=== PATIENT | female | born 1955 | race Caucasian/White ===

== ENCOUNTER 2016-06-26 21:28 | Emergency (ER) | payer MEDICARE ==
[~2016-06-26 21:28] MED LIST changes: -BENADRYL 25MG C25 MG PO; -COUMADIN4 MG PO; -COUMADIN7.5 MG PO; -FISH OIL PO; -IBUPROFEN800 MG PO; -LEVOTHYROXINE50 MCG PO; -MIRALAX17 GM PO; -MULTAQ400 MG PO; -ROCEPHIN 22 G/50 ML IV; -ROXICODONE5 MG PO; -TYLENOL 325MG325 MG PO; -VIT D PO; -VITAMIN C500 MG PO
[2016-06-27 02:46] LABS: HEMOGLOBIN 14.6 gm/dl (12.3-15.3); RED BLOOD COUNT 4.72 M/UL (4.00-5.10); WHITE BLOOD COUNT 7.9 K/UL (4.5-11.0)
== END 2016-06-27 05:30 | disposition home or self-care (01) ==
LOC: ER1 21:28
PROVIDERS: Family Medicine
DX: L03.116 Cellulitis of left lower limb (principal); E66.9 Obesity, unspecified; Z88.5 Allergy status to narcotic agent; Z88.8 Allergy status to other drugs, medicaments and biological substances; Z95.2 Presence of prosthetic heart valve; Z79.01 Long term (current) use of anticoagulants; Z79.899 Other long term (current) drug therapy
CPT/HCPCS: 36415; 73610; 80053; 85025; 86140; 87040; 87070; 87205; 96365; 99283; J0875; J7060

== ENCOUNTER → 2016-06-26 | Outpatient (CLI) | payer MEDICARE ==
[~2016-06-26] MED LIST: ASPIRIN EC81 MG PO; BENADRYL 25MG C25 MG PO; COUMADIN4 MG PO; COUMADIN5 MG PO; COUMADIN7.5 MG PO; FISH OIL PO; IBUPROFEN800 MG PO; LEVOTHYROXINE50 MCG PO; MIRALAX17 GM PO; MULTAQ400 MG PO; NEURONTIN300 MG PO; OMEPRAZOLE20 M1 PO; PROZAC20 MG PO; ROCEPHIN 22 G/50 ML IV; ROXICODONE5 MG PO; TENORMIN 25 MG25 MG PO; TENORMIN25 MG PO; TYLENOL 325MG325 MG PO; VIT D PO; VITAMIN C500 MG PO; ZIPSOR25 MG PO; ZOCOR10 MG PO
== END ==
LOC: LBRF 14:34
DX: S91.002A Unspecified open wound, left ankle, initial encounter (principal)
CPT/HCPCS: 87070; 87205

== ENCOUNTER 2016-06-27 19:23 | Emergency (ER) | payer MEDICARE ==
[2016-06-27 20:25] LABS: HEMOGLOBIN 15.5 gm/dl (12.3-15.3); RED BLOOD COUNT 4.97 M/UL (4.00-5.10)
== END 2016-06-27 23:40 | disposition home or self-care (01) ==
LOC: ER1 19:23
PROVIDERS: Emergency Medicine
DX: T78.40XA Allergy, unspecified, initial encounter (principal); I10 Essential (primary) hypertension; G47.33 Obstructive sleep apnea (adult) (pediatric); E78.00 Pure hypercholesterolemia, unspecified; I51.9 Heart disease, unspecified; Z88.5 Allergy status to narcotic agent; Z88.8 Allergy status to other drugs, medicaments and biological substances; Z95.2 Presence of prosthetic heart valve; Z79.82 Long term (current) use of aspirin; Z79.01 Long term (current) use of anticoagulants; Z79.899 Other long term (current) drug therapy; X58.XXXA Exposure to other specified factors, initial encounter
CPT/HCPCS: 36415; 80048; 85025; 85610; 93005; 96374; 96375; 96376; 99283; J1100; J1200; J2930

== ENCOUNTER 2016-06-29 10:14 | Inpatient (IN) | payer MEDICARE ==
[~2016-06-29] VITALS: Ht 165.1 cm; Wt 130.6 kg
[2016-06-29 13:36] LABS: HEMOGLOBIN 13.7 gm/dl (12.3-15.3); WHITE BLOOD COUNT 10.1 K/UL (4.5-11.0)
[2016-06-29 13:38] LABS: RED BLOOD COUNT 4.39 M/UL (4.00-5.10)
[2016-06-30] MEDS ORDERED: COUMADIN4 MG PO (03:22)
[2016-06-30] MEDS ORDERED: MULTAQ400 MG PO (03:24)
[2016-06-30] MEDS ORDERED: LEVOTHYROXINE50 MCG PO (03:25)
[2016-06-30 03:26] LABS: HEMOGLOBIN 13.3 gm/dl (12.3-15.3); RED BLOOD COUNT 4.31 M/UL (4.00-5.10)
[2016-06-30] MEDS ORDERED: VIT D PO (03:29)
[2016-06-30] MEDS ORDERED: FISH OIL PO (03:29)
[2016-06-30] MEDS ORDERED: MIRALAX17 GM PO (03:30)
[2016-06-30 03:36] LABS: WHITE BLOOD COUNT 5.8 K/UL (4.5-11.0)
[2016-07-03 06:06] LABS: HEMOGLOBIN 13.1 gm/dl (12.3-15.3); RED BLOOD COUNT 4.29 M/UL (4.00-5.10); WHITE BLOOD COUNT 11.7 K/UL (4.5-11.0)
[2016-07-03] MEDS ORDERED: ROCEPHIN 22 G/50 ML IV (17:53)
[2016-07-03] MEDS ORDERED: VITAMIN C500 MG PO (17:54)
[2016-07-03] MEDS ORDERED: COUMADIN7.5 MG PO (17:56)
[2016-07-03] MEDS ORDERED: TYLENOL 325MG325 MG PO (17:57)
[2016-07-03] MEDS ORDERED: ROXICODONE5 MG PO (17:58)
[2016-07-03] MEDS ORDERED: BENADRYL 25MG C25 MG PO (17:58)
[2016-07-03] MEDS ORDERED: IBUPROFEN800 MG PO (18:00)
== END 2016-07-03 20:00 | DRG 571 ==
LOC: ER1 10:14 → ZEROF 16:14 → MED SURG 4 17:30
PROVIDERS: Internal Medicine Infectious Disease; Podiatrist Foot & Ankle Surgery; Specialist/Technologist Athletic Trainer; ADMIT Internal Medicine
PROC: 0JBR0ZZ Excision of Left Foot Subcutaneous Tissue and Fascia, Open Approach (ICD-10-PCS; principal; 2016-07-01 16:00)
PROC: 05HF33Z Insertion of Infusion Device into Left Cephalic Vein, Percutaneous Approach (ICD-10-PCS; 2016-07-03)
DX: L03.116 Cellulitis of left lower limb (principal); Z68.42 Body mass index [BMI] 45.0-49.9, adult; T36.95XA Adverse effect of unspecified systemic antibiotic, initial encounter; G47.33 Obstructive sleep apnea (adult) (pediatric); E78.5 Hyperlipidemia, unspecified; E66.9 Obesity, unspecified; Z95.2 Presence of prosthetic heart valve; Z82.49 Family history of ischemic heart disease and other diseases of the circulatory system; Z88.5 Allergy status to narcotic agent; Z88.1 Allergy status to other antibiotic agents
CPT/HCPCS: 36415; 71010; 73610; 73630; 80048; 80053; 85025; 85027; 85610; 85730; 86140; 87070; 87077; 87186; 87205; 93005; 96374; 99283; J0696; J1335; J1650; J2250; J2795; J2920; J3370; J7030; J7040; J7050; J7120; Q0163

== ENCOUNTER → 2016-07-23 | Outpatient (CLI) | payer MEDICARE ==
[~2016-07-23] MED LIST changes: +BENADRYL 25MG C25 MG PO; +COUMADIN4 MG PO; +COUMADIN7.5 MG PO; +FISH OIL PO; +IBUPROFEN800 MG PO; +LEVOTHYROXINE50 MCG PO; +MIRALAX17 GM PO; +MULTAQ400 MG PO; +ROCEPHIN 22 G/50 ML IV; +ROXICODONE5 MG PO; +TYLENOL 325MG325 MG PO; +VIT D PO; +VITAMIN C500 MG PO
== END ==
LOC: OPSV 12:47
DX: L98.0 Pyogenic granuloma (principal)
CPT/HCPCS: G0463

== ENCOUNTER → 2016-08-20 | Outpatient (CLI) | payer MEDICARE | LOC: OPSV 13:00 | DX: T81.89XD Other complications of procedures, not elsewhere classified, subsequent encounter (principal) | CPT/HCPCS: G0463 ==

== ENCOUNTER 2016-08-23 14:49 | Emergency (ER) | payer MEDICARE ==
[2016-08-23 18:38] LABS: HEMOGLOBIN 13.2 gm/dl (12.3-15.3); RED BLOOD COUNT 4.21 M/UL (4.00-5.10)
[2016-08-23 18:56] LABS: BUN/CREATININE RATIO 19 (0-10)
== END 2016-08-23 23:20 | disposition home or self-care (01) ==
LOC: ER1 14:49
PROVIDERS: Preventive Medicine Occupational Medicine
DX: K57.92 Diverticulitis of intestine, part unspecified, without perforation or abscess without bleeding (principal); Z91.030 Bee allergy status; Z79.01 Long term (current) use of anticoagulants; Z79.82 Long term (current) use of aspirin; Z79.899 Other long term (current) drug therapy
CPT/HCPCS: 36415; 80053; 81001; 83690; 85025; 86140; 96374; 96375; 99284; J2405; J2550; J7030; J7050; Q9962

== ENCOUNTER → 2020-06-12 | Outpatient (CLI) | payer OTHER ==
[~2020-06-12] MED LIST changes: +AUGMENTIN 875-1 EACH PO; +CARDIZEM120 MG PO; +FLAGYL500 MG PO; +PERCOCET 5/325 T1 EA PO; +ZOFRAN ODT 4 MG4 MG SL
== END ==
LOC: EXRD 13:31
DX: Z13.820 Encounter for screening for osteoporosis (principal); Z78.0 Asymptomatic menopausal state
CPT/HCPCS: 77080

== ENCOUNTER 2020-08-24 17:17 | Emergency (ER) | payer OTHER ==
[~2020-08-24 17:17] MED LIST changes: -CARDIZEM120 MG PO
[2020-08-24 18:15] LABS: HEMOGLOBIN 13.9 gm/dl (12.3-15.3); RED BLOOD COUNT 4.19 M/UL (4.00-5.10); WHITE BLOOD COUNT 7.6 K/UL (4.5-11.0)
[2020-08-24 18:35] LABS: BUN/CREATININE RATIO 19 (0-10)
[2020-08-24] MEDS ORDERED: CARDIZEM120 MG PO (20:09)
== END 2020-08-24 22:05 | disposition home or self-care (01) ==
LOC: ER1 17:17
PROVIDERS: Physician Assistant
DX: Z23 Encounter for immunization (principal); U07.1 COVID-19; I48.91 Unspecified atrial fibrillation; I35.9 Nonrheumatic aortic valve disorder, unspecified; N18.9 Chronic kidney disease, unspecified; Z88.5 Allergy status to narcotic agent; Z88.8 Allergy status to other drugs, medicaments and biological substances; Z79.899 Other long term (current) drug therapy; Z79.01 Long term (current) use of anticoagulants
CPT/HCPCS: 71045; 80053; 82550; 82553; 83874; 83880; 84439; 84443; 84484; 85025; 85610; 92960; 93005; 96374; 99285; M0245; U0002

== ENCOUNTER 2020-09-03 01:36 | Emergency (ER) | payer OTHER ==
[~2020-09-03 01:36] MED LIST changes: +CARDIZEM120 MG PO
[2020-09-03 02:32] LABS: HEMOGLOBIN 14.8 gm/dl (12.3-15.3); RED BLOOD COUNT 4.64 M/UL (4.00-5.10); WHITE BLOOD COUNT 11.1 K/UL (4.5-11.0)
[2020-09-03 02:53] LABS: BUN/CREATININE RATIO 29 (0-10)
== END 2020-09-03 05:15 | disposition home or self-care (01) ==
LOC: ER1 01:36
PROVIDERS: Family Medicine
DX: R00.2 Palpitations (principal); I48.0 Paroxysmal atrial fibrillation; N28.9 Disorder of kidney and ureter, unspecified; Z79.01 Long term (current) use of anticoagulants; E11.9 Type 2 diabetes mellitus without complications; Z79.82 Long term (current) use of aspirin; Z79.899 Other long term (current) drug therapy
CPT/HCPCS: 80053; 82550; 82553; 83874; 84439; 84443; 84484; 85025; 85610; 93005; 99285

== ENCOUNTER → 2020-10-09 | Outpatient (CLI) | payer OTHER | LOC: HEART 5 09:53 | DX: I47.1 Supraventricular tachycardia (principal); R42 Dizziness and giddiness; R53.83 Other fatigue; R00.2 Palpitations; R06.02 Shortness of breath; I27.20 Pulmonary hypertension, unspecified; I08.1 Rheumatic disorders of both mitral and tricuspid valves | CPT/HCPCS: 93306 ==

== ENCOUNTER 2020-10-21 22:32 | Emergency (ER) | payer OTHER ==
[2020-10-22 00:44] LABS: HEMOGLOBIN 14.4 gm/dl (12.3-15.3); RED BLOOD COUNT 4.58 M/UL (4.00-5.10)
[2020-10-22 01:07] LABS: BUN/CREATININE RATIO 19 (0-10)
== END 2020-10-22 04:15 | disposition home or self-care (01) ==
LOC: ER1 22:32
PROVIDERS: Physician Assistant
DX: R00.2 Palpitations (principal); I10 Essential (primary) hypertension; I25.10 Atherosclerotic heart disease of native coronary artery without angina pectoris; Z79.01 Long term (current) use of anticoagulants
CPT/HCPCS: 71045; 80053; 82550; 82553; 83874; 84484; 85025; 85610; 93005; 99285

== ENCOUNTER → 2021-04-14 | Outpatient (CLI) | payer OTHER | LOC: MAMO 02-12 14:30 | DX: Z12.31 Encounter for screening mammogram for malignant neoplasm of breast (principal) | CPT/HCPCS: 77063; 77067 ==

== ENCOUNTER → 2021-05-19 | Outpatient (CLI) | payer OTHER | LOC: CT 10:24 | DX: M16.0 Bilateral primary osteoarthritis of hip (principal) | CPT/HCPCS: 72192 ==